=== PATIENT | female | born 2000 ===

== ENCOUNTER 2021-02-19 11:38 | Outpatient (CLI) | payer OTHER ==
[2021-02-19 12:35] VITALS: BP 106/67
--- NOTE | 2021-02-19 13:46 | Ultrasound Report ---
ULTRASOUND OBSTETRIC LIMITED WITH BPP INDICATION / CLINICAL INFORMATION: , assess BPP and TRENTON. TECHNIQUE: Transabdominal ultrasound imaging. COMPARISON: None available. FINDINGS: Estimated gestational age of 40 weeks and 6 days. HEART RATE (beats per minute): 151 AMNIOTIC FLUID INDEX (cm) = 19.9 cm Q1-6 cm, Q2-5 cm, Q3-4.3 cm, Q4-4.7 cm. PRESENTATION: Cephalic. ADDITIONAL FINDINGS: Placenta is located anteriorly. Biophysical profile score of 8 out of 8 was detected with 2 points each for breathing, movements, pos ture and tone, and fluid volume. IMPRESSION: Single live intrauterine with estimated gestational age of 40 weeks and 6 days. Normal biophysical profile score of 8 out of 8. Signer Name: Lex Chavarria MD Signed: 02/19/2021 1:41 PM Workstation Name: [id number]
--- NOTE | 2021-02-20 05:27 | Ultrasound Report ---
ULTRASOUND OBSTETRIC LIMITED INDICATION / CLINICAL INFORMATION: EFW, TRENTON. Clinical Gestational Age (GA) in weeks, days: 41 weeks 0 days TECHNIQUE: Transabdominal. COMPARISON: 02/19/2021. FINDINGS: Examination is limited due to late gestational age. Single live intrauterine in c ephalic presentation with heart rate measuring 140 bpm. measurements correspond to a gest ational age of 37 weeks and 2 days, with estimated weight of 3174 g. TRENTON measures 14.8 cm, with in normal limits. IMPRESSION: Single live intrauterine , as detailed above. No significant abnormality identified. Signer Name: Sam Henderson MD Signed: 02/20/2021 5:23 AM Workstation Name: [id number]
== END 2021-02-19 13:41 | disposition home or self-care (01) ==
LOC: TRG 11:38 → APU 12:18 → TRG 13:41
PROVIDERS: ATTEND Obstetrics & Gynecology
DX: Z34.93 Encounter for supervision of normal pregnancy, unspecified, third trimester (principal); Z3A.40 40 weeks gestation of pregnancy
CPT/HCPCS: 59025; 76815; 76816; 76819

== ENCOUNTER 2021-02-20 05:04 | Inpatient (IN) | payer OTHER ==
[2021-02-20] MEDS ORDERED: LACTATED RINGERS 1,000 ML ONE (05:57)
[2021-02-20] MEDS ORDERED: CARBOPROST TROMETHAMINE 250 MCG/1 ML INJ IM PRN (07:32)
[2021-02-20] MEDS ORDERED: LOPERAMIDE 2 MG CAP PO PRN (07:32)
[2021-02-20] MEDS ORDERED: LIDOCAINE (2%) 20 MG/1 ML VIAL 20 ML MDV INFILTRATI NR (07:32)
[2021-02-20] MEDS ORDERED: miSOPROStol 200 MCG TAB PR PRN (07:32)
[2021-02-20] MEDS ORDERED: METHYLERGONOVINE MALEATE 0.2 MG/ML VIAL IM PRN (07:32)
--- NOTE | 2021-02-20 07:42 | History and Physical Report ---
History of Present Illness Date of examination: 02/20/21 Chief complaint: LOF History of present illness: 21 y/o at 41 weeks wo reports LOF. CTX that were irregular started after LOF. Good FM. ROM (+) in OBT. Past History Past Medical History: no pertinent history Past Surgical History: no surgical history Family/Genetic History: none Social history: no significant social history - Obstetrical History Expected Date of Delivery: 02/13/21 Actual Gestation: 41 Week(s) 0 Day(s) : 1 Medications and Allergies Allergies Allergy/AdvReac Type Severity Reaction Status Date / Time No Known Allergies Allergy Unverified 02/19/21 12:25 Active Meds: Active Medications Mineral Oil (Mineral Oil 30 Ml Oral Liqd) 30 ml PO QHS PRN PRN Reason: Constipation Terbutaline Sulfate (Terbutaline 1 Mg/1 Ml Inj) 0.25 mg SUB-Q ONCE PRN PRN Reason: Hyperstimulation/Hypertonicity Review of Systems All systems: negative - Vital Signs Vital signs: Vital Signs Pulse Pulse Ox 86 98 02/20/21 05:13 02/20/21 05:13 Temp Pulse Resp BP Pulse Ox 84 116/60 94 02/20/21 07:35 02/20/21 07:34 02/20/21 07:35 - Physical Exam Breasts: Positive: normal Cardiovascular: Regular rate Lungs: Positive: Normal air movement Abdomen: Positive: normal appearance Vulva: both: normal Vagina: Positive: normal moisture Adnexa: both: normal Anus/Rectum: Positive: normal perianal skin Extremities: Positive: normal - Obstetrical FHR: category 1 Uterine Contraction Monitor Mode: External Cervical Dilatation: 1 Cervical Effacement Percentage: 70 station: -3 Uterine Contraction Pattern: Irregular Results All other labs normal. Ultrasound: pending Assessment and Plan - Patient Problems (1) 41 weeks gestation of Current Visit: Yes Status: Acute Plan to address problem: care at [facility]. GBS (-). (2) Post term at 41 weeks gestation Current Visit: Yes Status: Acute Plan to address problem: Admit to L&D. Ordered US for EFW. (3) Full-term PROM with onset of labor within 24 hours of rupture Current Visit: Yes Status: Acute Plan to address problem: IOL w/ Cytotec. Pitocin thereafter when possible.
[2021-02-20] MEDS ORDERED: TERBUTALINE 1 MG/1 ML INJ SUB-Q PRN (08:00)
[2021-02-20] MEDS ORDERED: OXYTOCIN 10 UNIT/1 ML INJ IM PRN (08:00)
[2021-02-20] MEDS ORDERED: BUTORPHANOL 2 MG/1 ML INJ IV PRN (08:00)
[2021-02-20] MEDS ORDERED: miSOPROStol 25 MCG TAB PO SCH (08:00)
[2021-02-20] MEDS ORDERED: ePHEDrine SULFATE 50 MG/1 ML INJ IV PRN (08:00)
[2021-02-20] MEDS ORDERED: LACTATED RINGERS 1,000 ML IV SCH (08:00)
[2021-02-20] MEDS ORDERED: ACETAMINOPHEN 325 MG TAB PO PRN (08:00)
[2021-02-20] MEDS ORDERED: OXYTOCIN DRIP 30 UNITS/500 ML BAG IV SCH (08:00)
--- NOTE | 2021-02-20 11:11 | Progress Note ---
Assessment and Plan A: IUP @ 41 Weeks Category I Tracing PROM Meconium Stained Fluids GBS Negative P: Cook's Cervical Ripening Balloon placed Low Dose Pitocin Subjective - Subjective Date of service: 02/20/21 Patient reports: loss of fluid, movement normal, contractions (Declines IV Pain Medication) Objective - Vital Signs Vital Signs: Vital Signs - 12hr 02/20/21 02/20/21 02/20/21 05:13 05:18 05:23 Pulse Rate 86 83 83 Blood Pressure O2 Sat by Pulse 98 95 95 Oximetry 02/20/21 02/20/21 02/20/21 05:28 05:33 05:38 Pulse Rate 106 H 78 83 Blood Pressure O2 Sat by Pulse 94 93 94 Oximetry 02/20/21 02/20/21 02/20/21 05:43 05:45 05:48 Pulse Rate 92 H 84 81 Blood Pressure O2 Sat by Pulse 94 94 93 Oximetry 02/20/21 02/20/21 02/20/21 05:50 05:53 05:58 Pulse Rate 95 H 117 H 95 H Blood Pressure O2 Sat by Pulse 94 94 96 Oximetry 02/20/21 02/20/21 02/20/21 06:03 06:08 06:13 Pulse Rate 106 H 93 H 89 Blood Pressure O2 Sat by Pulse 96 96 97 Oximetry 02/20/21 02/20/21 02/20/21 06:18 06:21 06:23 Pulse Rate 96 H 90 100 H Blood Pressure O2 Sat by Pulse 95 94 96 Oximetry 02/20/21 02/20/21 02/20/21 06:28 06:33 06:34 Pulse Rate 87 91 H 101 H Blood Pressure O2 Sat by Pulse 96 95 94 Oximetry 02/20/21 02/20/21 02/20/21 06:38 06:40 06:43 Pulse Rate 83 101 H 83 Blood Pressure O2 Sat by Pulse 94 94 94 Oximetry 02/20/21 02/20/21 02/20/21 06:48 06:49 06:53 Pulse Rate 84 83 106 H Blood Pressure O2 Sat by Pulse 95 93 95 Oximetry 02/20/21 02/20/21 02/20/21 06:57 06:58 07:03 Pulse Rate 89 95 H 98 H Blood Pressure O2 Sat by Pulse 93 95 96 Oximetry 02/20/21 02/20/21 02/20/21 07:08 07:13 07:18 Pulse Rate 114 H 92 H 90 Blood Pressure O2 Sat by Pulse 97 96 94 Oximetry 02/20/21 02/20/21 02/20/21 07:23 07:34 07:35 Pulse Rate 105 H 109 H 84 Blood Pressure 116/60 O2 Sat by Pulse 96 95 94 Oximetry 02/20/21 02/20/21 02/20/21 07:39 07:42 07:44 Pulse Rate 94 H 78 106 H Blood Pressure O2 Sat by Pulse 95 93 95 Oximetry 02/20/21 02/20/21 02/20/21 07:48 07:49 07:54 Pulse Rate 78 81 88 Blood Pressure O2 Sat by Pulse 94 94 95 Oximetry 02/20/21 02/20/21 02/20/21 07:55 07:59 08:04 Pulse Rate 83 85 82 Blood Pressure O2 Sat by Pulse 94 95 96 Oximetry 02/20/21 02/20/21 02/20/21 08:05 08:09 08:14 Pulse Rate 84 71 83 Blood Pressure O2 Sat by Pulse 94 92 90 Oximetry 02/20/21 02/20/21 02/20/21 08:19 08:24 08:29 Pulse Rate 86 81 88 Blood Pressure O2 Sat by Pulse 90 90 90 Oximetry 02/20/21 02/20/21 02/20/21 08:34 08:39 08:44 Pulse Rate 90 77 83 Blood Pressure O2 Sat by Pulse 90 91 91 Oximetry 02/20/21 02/20/21 02/20/21 08:49 08:54 08:59 Pulse Rate 92 H 89 86 Blood Pressure O2 Sat by Pulse 90 91 91 Oximetry 02/20/21 02/20/21 02/20/21 09:04 09:09 09:14 Pulse Rate 97 H 83 85 Blood Pressure O2 Sat by Pulse 90 91 91 Oximetry 02/20/21 02/20/21 02/20/21 09:19 09:24 09:29 Pulse Rate 77 78 90 Blood Pressure O2 Sat by Pulse 89 91 91 Oximetry 02/20/21 02/20/21 02/20/21 09:34 09:39 09:44 Pulse Rate 83 82 82 Blood Pressure O2 Sat by Pulse 92 93 93 Oximetry 02/20/21 02/20/21 02/20/21 10:11 10:14 10:16 Pulse Rate 101 H 93 H 94 H Blood Pressure 105/59 O2 Sat by Pulse 97 94 96 Oximetry 02/20/21 02/20/21 02/20/21 10:21 10:26 10:31 Pulse Rate 83 73 85 Blood Pressure O2 Sat by Pulse 96 97 98 Oximetry 02/20/21 02/20/21 02/20/21 10:36 10:41 10:46 Pulse Rate 105 H 86 110 H Blood Pressure O2 Sat by Pulse 97 96 94 Oximetry 02/20/21 02/20/21 02/20/21 10:50 10:51 10:56 Pulse Rate 101 H 67 96 H Blood Pressure O2 Sat by Pulse 93 95 96 Oximetry 02/20/21 11:01 Pulse Rate 117 H Blood Pressure O2 Sat by Pulse 97 Oximetry - Exam Breasts: normal Cardiovascular: Regular rate Lungs: Normal air movement Abdomen: Present: normal appearance, soft Uterus: Present: normal, firm, fundal height above umbilicus FHR: category 1 Uterine Contraction Monitor Mode: External Cervical Dilatation: 2 (Leaking a copious amount of brown meconium stained fluids) Cervical Effacement Percentage: 80 station: -3 Uterine Contraction Frequency (min): 1-3 Uterine Contraction Pattern: Regular Uterine Tone Measurement Phase: Resting Uterine Contraction Intensity: Moderate Extremities: normal
[2021-02-20] MEDS: fentaNYL 100 MCG/2 ML INJ IV PRN ×4 (11:26→19:06)
[2021-02-20 17:13] LABS: Hemoglobin 13.3 gm/dl (10.1-14.3); Mean Corpuscular HGB Conc 32 % (30-34); Mean Corpuscular Volume 98 fl (79-97); Platelet Count 119 K/mm3 (140-440); Red Blood Count 4.17 M/mm3 (3.65-5.03); Red Cell Distribution Width 14.1 % (13.2-15.2)
[2021-02-20] MEDS ORDERED: MINERAL OIL 30 ML ORAL LIQD ONE (19:18)
[2021-02-20] MEDS ORDERED: LANOLIN/ZINC/DIMETHICONE (LANSINOH) 7 GM TP PRN (19:58)
[2021-02-20] MEDS ORDERED: ONDANSETRON 4 MG/2 ML INJ IV PRN (19:58)
[2021-02-20] MEDS ORDERED: MAGNESIUM HYDROXIDE (MOM) ORAL LIQD UDC PO PRN (19:58)
[2021-02-20] MEDS ORDERED: KETOROLAC 30 MG/1 ML INJ IV PRN (19:58)
[2021-02-20] MEDS ORDERED: PROMETHAZINE 25 MG RECT SUPP PR PRN (19:58)
[2021-02-20] MEDS ORDERED: WITCH HAZEL/ GLYCERIN PAD TP PRN (19:58)
[2021-02-20] MEDS ORDERED: PROMETHAZINE 25 MG TAB PO PRN (19:58)
[2021-02-20] MEDS ORDERED: diphenhydrAMINE 25 MG CAP PO PRN (19:58)
--- NOTE | 2021-02-20 20:00 | Procedure Note ---
OB Delivery Note - Delivery Date of Delivery: 02/20/21 Surgeon: URIEL RODRIGUEZ Estimated blood loss: 200cc - Vaginal Delivery position: OA Intrapartum events: none Delivery induction: misoprostol Delivery augmentation: rupture of membranes, pitocin Delivery monitor: external FHT, external uterine Route of delivery: Delivery placenta: spontaneous Delivery cord: 3 umbilical vessels Episiotomy: none Delivery laceration: 1st degree Delivery repair: vicryl Anesthesia: local Delivery comments: Patient pushed to deliver a viable male over an intact perineum with weight [id number] and 8/8. Position VERONICA, no nuchal cord. Spontaneous cry at delivery. Delivery of the anterior shoulder atraumatic, remainder of delivery uncomplicated. Cord clamped cut and baby handed to waiting JODI team. Spontaneous delivery of an intact placenta with three-vessel cord. Inspection of the perineum cervix and vagina revealed first degree perineal midline repaired with 2-0 vicryl inthe usual fashion. Firm fundus, EBL 200ml. All sponge needle and instrument counts correct x2. Mom and baby stable to . Sherine Rodriguez MD
[2021-02-20] MEDS: IBUPROFEN 600 MG TAB PO SCH (20:54)
[2021-02-20] MEDS ORDERED: MINERAL OIL 30 ML ORAL LIQD PO PRN (22:00)
[2021-02-20] MEDS: HYDROcodone/ACETAMINOPHEN 5-325 MG TAB PO PRN (23:08)
[2021-02-21] MEDS: IBUPROFEN 600 MG TAB PO SCH ×2 (05:52→20:00)
--- NOTE | 2021-02-21 10:09 | Progress Note ---
Assessment and Plan A: S/P Awaiting H&H p: Continue routine pp orders D/C home tomm if stable Subjective - Subjective Date of service: 02/21/21 Principal diagnosis: S/P Patient reports: appetite normal, voiding normally, pain well controlled, ambulating normally [place]: doing well, bottle feeding Objective - Vital Signs Latest vital signs: Vital Signs Temp Pulse Resp BP BP Pulse Ox Pulse Ox 02/21/21 07:18 97.6 F 88 17 90/54 95 02/21/21 05:50 98 02/21/21 04:25 98.2 F 96 H 18 97/54 98 02/21/21 03:15 97 02/21/21 01:30 98 02/21/21 00:23 99.0 F 85 18 110/56 94 02/21/21 00:05 97 02/20/21 21:45 99.2 F 81 18 106/61 97 98 02/20/21 20:33 105 H 100/59 02/20/21 20:31 95 H 106/61 02/20/21 20:29 102 H 98 02/20/21 20:24 98 H 98 02/20/21 20:19 105 H 99 02/20/21 20:18 101 H 102/54 02/20/21 20:14 92 H 100 02/20/21 20:09 86 99 02/20/21 20:04 115 H 98 02/20/21 20:02 105 H 105/52 02/20/21 20:00 98.3 F 02/20/21 19:59 109 H 99 02/20/21 19:57 120 H 95/54 02/20/21 19:54 129 H 99 02/20/21 19:52 150 H 92/49 02/20/21 19:49 118 H 97 02/20/21 19:47 118 H 95/45 02/20/21 19:44 121 H 96 02/20/21 19:43 121 H 103/50 02/20/21 19:41 133 H 94 02/20/21 19:40 129 H 141/56 02/20/21 19:39 165 H 96 02/20/21 19:34 152 H 96 02/20/21 19:33 127 H 133/65 02/20/21 19:29 125 H 91 02/20/21 19:28 108 H 110/54 02/20/21 19:25 100 15 19:21 128 H 96 02/20/21 19:16 116 H 96 02/20/21 19:11 114 H 96 02/20/21 19:08 104 H 94 02/20/21 19:06 103 H 95 02/20/21 19:03 96 H 107/58 02/20/21 19:01 113 H 94 02/20/21 18:56 111 H 89 02/20/21 18:51 92 H 93 02/20/21 18:49 104 H 94 02/20/21 18:46 91 H 99 02/20/21 18:43 100 H 94 02/20/21 18:41 84 97 02/20/21 18:36 101 H 98 02/20/21 18:34 93 H 113/55 02/20/21 18:31 120 H 102/63 95 02/20/21 18:26 86 96 02/20/21 18:24 85 92 02/20/21 18:21 96 H 96 02/20/21 18:17 105 H 94 02/20/21 18:16 116 H 96 02/20/21 18:11 96 H 96 02/20/21 18:07 83 94 02/20/21 18:06 85 97 02/20/21 17:41 110 H 96 02/20/21 17:36 100 H 96 02/20/21 17:35 111 H 94 02/20/21 17:33 97 H 116/75 02/20/21 17:31 87 97 02/20/21 17:28 115 H 94 02/20/21 17:26 100 H 97 02/20/21 17:21 87 96 02/20/21 17:16 79 96 02/20/21 17:11 98 H 97 02/20/21 17:06 106 H 97 02/20/21 17:03 95 H 115/58 02/20/21 17:01 84 98 02/20/21 16:56 101 H 97 02/20/21 16:51 119 H 97 02/20/21 16:46 88 99 02/20/21 16:41 109 H 98 02/20/21 16:39 82 94 02/20/21 16:36 83 96 02/20/21 16:33 109 H 111/58 02/20/21 16:32 79 93 02/20/21 16:31 83 96 02/20/21 16:26 87 96 02/20/21 16:21 87 98 02/20/21 16:16 75 96/53 95 02/20/21 16:14 92 H 94 02/20/21 16:11 106 H 95 02/20/21 16:06 85 96 02/20/21 16:03 80 95/52 02/20/21 16:01 83 95 02/20/21 15:56 76 94 02/20/21 15:52 87 94 02/20/21 15:51 72 94 02/20/21 15:47 81 94 02/20/21 15:46 78 95 02/20/21 15:41 78 94 02/20/21 15:36 78 96 02/20/21 15:33 86 103/55 93 02/20/21 15:31 93 H 96 02/20/21 15:28 75 94 02/20/21 15:26 76 93 02/20/21 15:23 75 107/55 02/20/21 15:22 76 94 02/20/21 15:21 76 94 02/20/21 14:50 74 96 02/20/21 14:45 82 95 02/20/21 14:40 87 95 02/20/21 14:39 93 H 90 02/20/21 14:38 76 114/55 02/20/21 14:35 81 96 02/20/21 14:34 100 H 94 02/20/21 14:30 105 H 97 02/20/21 14:27 90 92 02/20/21 14:25 110 H 98 02/20/21 14:20 88 96 02/20/21 14:15 76 97 02/20/21 14:11 112 H 127/59 02/20/21 14:10 112 H 96 02/20/21 13:46 98 H 103/51 02/20/21 12:31 100 H 94 02/20/21 12:26 106 H 94 02/20/21 12:24 84 93 02/20/21 12:21 94 H 92 02/20/21 12:16 105 H 94 02/20/21 12:11 86 92 02/20/21 12:06 82 92 02/20/21 12:01 95 H 90 02/20/21 11:56 87 91 02/20/21 11:51 81 91 02/20/21 11:46 102 H 89 02/20/21 11:41 94 H 90 02/20/21 11:36 96 H 89 02/20/21 11:31 95 H 89 02/20/21 11:26 89 92 02/20/21 11:21 91 H 95 02/20/21 11:16 84 95 02/20/21 11:15 103 H 94 02/20/21 11:11 81 96 02/20/21 11:08 91 H 94 02/20/21 11:06 88 97 02/20/21 11:01 117 H 97 02/20/21 10:56 96 H 96 02/20/21 10:51 67 95 02/20/21 10:50 101 H 93 02/20/21 10:46 110 H 94 02/20/21 10:41 86 96 02/20/21 10:36 105 H 97 02/20/21 10:31 85 98 02/20/21 10:26 73 97 02/20/21 10:21 83 96 02/20/21 10:16 94 H 96 02/20/21 10:14 93 H 105/59 94 02/20/21 10:11 101 H 97 Intake and Output 02/20/21 02/21/21 02/21/21 22:59 06:59 14:59 Intake Total 7.833 540 240 Output Total 1150 Balance 7.833 -610 240 Intake: IV 7.833 PITOCin/NS 30 UNIT/500ML 7.833 30 units In 500 ml @ 40 mls/hr IV TITR GREER Rx#: [id number] Oral 300 240 Intake, Free Water 240 Output: Urine 1150 Void 1150 Other: Total, Intake Amount 300 240 Total, Output Amount 650 # Voids Void 1 1 Estimated Blood Loss 200 - Exam Breasts: Present: normal Abdomen: Present: normal appearance, soft, normal bowel sounds Vulva: both: normal Uterus: Present: normal, firm, fundal height below umbilicus Extremities: Present: normal Incision: Present: normal - Labs Labs: Abnormal lab results 02/20/21 Range/Units 02:38 MCV 98 H (79-97) fl Plt Count 119 L (140-440) K/mm3
--- NOTE | 2021-02-21 10:14 | Discharge Summary ---
Providers - Providers Date of Admission: 02/20/21 07:32 Date of discharge: 02/22/21 Attending physician: TALIA LUCIANO Primary care physician: TALIA LUCIANO Hospitalization Reason for admission: active labor, rupture of membranes Delivery: Episiotomy: none Laceration: 1st degree Incision: normal, intact Other procedures: none complications: none Discharge diagnosis: IUP at term delivered baby: male Hospital course: Pt was admitted to [facility] in active labor with SROM. She had a w/o pp complications. See H&P, delivery summary, and pp notes. Condition at discharge: Stable Disposition: 01 HOME / SELF CARE / HOMELESS Plan - Discharge Medications Prescriptions: Ibuprofen [Motrin 600 MG tab] 600 mg PO Q6H PRN #30 tablet PRN Reason: Menstrual Cramps - Provider Discharge Summary Activity: routine, no sex for 6 weeks, no heavy lifting 4 weeks, no strenuous exercise Diet: routine Instructions: routine Additional instructions: [] Smoking cessation referral if applicable(refer to patient education folder for contact #) [] Refer to [facility] Booklet Call your doctor immediately for: * Fever > 100.5 * Heavy vaginal bleeding ( >1 pad per hour) * Severe persistent headache * Shortness of breath * Reddened, hot, painful area to leg or breast * Drainage or odor from incision. * Keep incision clean and dry at all times and follow doctor's instructions regarding bathing/showering - Follow up plan Follow up: TALIA LUCIANO MD [Primary Care Provider] - 6 Weeks
[2021-02-21 12:23] LABS: Hematocrit 36.3 % (30.3-42.9); Hemoglobin 11.9 gm/dl (10.1-14.3)
[2021-02-21] MEDS: oxyCODONE /ACETAMINOPHEN 5-325MG TAB PO PRN ×2 (12:36→17:50)
[2021-02-22] MEDS: IBUPROFEN 600 MG TAB PO SCH (01:50)
[2021-02-22] MEDS: HYDROcodone/ACETAMINOPHEN 5-325 MG TAB PO PRN (10:02)
[2021-02-22 11:50] VITALS: BP 106/62
== END 2021-02-22 12:30 | disposition home or self-care (01) | DRG 807 ==
LOC: TRG 05:04 → LD 05:10 → TRG 07:32 → LD 07:32 → OB 22:31
PROVIDERS: ADMIT Obstetrics & Gynecology; ATTEND Obstetrics & Gynecology
PROC: 10E0XZZ Delivery of Products of Conception, External Approach (ICD-10-PCS; principal; 2021-02-20)
PROC: 3E0P7VZ Introduction of Hormone into Female Reproductive, Via Natural or Artificial Opening (ICD-10-PCS; 2021-02-20)
PROC: 0HQ9XZZ Repair Perineum Skin, External Approach (ICD-10-PCS; 2021-02-20)
DX: O77.0 Labor and delivery complicated by meconium in amniotic fluid (principal); Z37.0 Single live birth; Z3A.41 41 weeks gestation of pregnancy; O48.0 Post-term pregnancy; O42.02 Full-term premature rupture of membranes, onset of labor within 24 hours of rupture; O70.0 First degree perineal laceration during delivery
CPT/HCPCS: 36415; 59025; 85014; 85018; 85027; 86592; 86850; 86900; 86901; 96360; 96361; 96374; 96376; G0378; J0595; J2590; J3010; J7120